=== PATIENT | female | born 1975 | race Caucasian/White ===

== ENCOUNTER → 2021-04-08 | Outpatient (CLI) | payer MEDICARE, OTHER | LOC: KOH-I 10:49 | DX: G93.2 Benign intracranial hypertension (principal) | CPT/HCPCS: 70450 ==

== ENCOUNTER 2021-07-13 22:30 | Emergency (ER) | payer MEDICARE, OTHER ==
[2021-07-14 01:31] LABS: HEMOGLOBIN 15.7 gm/dl (12.3-15.3); RED BLOOD COUNT 4.67 M/UL (4.00-5.10)
[2021-07-14 02:00] LABS: BUN/CREATININE RATIO 19 (0-10)
== END 2021-07-14 07:04 | disposition home or self-care (01) ==
LOC: ER1 22:30
PROVIDERS: Physician Assistant
DX: R10.12 Left upper quadrant pain (principal); F17.210 Nicotine dependence, cigarettes, uncomplicated; J45.909 Unspecified asthma, uncomplicated
CPT/HCPCS: 71045; 80053; 82550; 82553; 83605; 83690; 83874; 84484; 84703; 85025; 93005; 99284; Q9967

== ENCOUNTER → 2021-08-31 | Outpatient (CLI) | payer MEDICARE, OTHER | LOC: EXRD 07:36 | DX: N26.1 Atrophy of kidney (terminal) (principal); I10 Essential (primary) hypertension | CPT/HCPCS: 93975 ==

== ENCOUNTER → 2022-04-13 | Outpatient (CLI) | payer MEDICARE, OTHER | LOC: KOH-I 04-11 09:00 | DX: Z98.2 Presence of cerebrospinal fluid drainage device (principal) | CPT/HCPCS: 70450 ==